=== PATIENT | male | born 1995 | race Caucasian/White ===

== ENCOUNTER 2020-11-26 18:20 | Emergency (ER) | payer BC ==
[2020-11-26] MEDS ORDERED: Bacitracin Oint 1 GM U/D Packet TOP ONE (19:01)
[2020-11-26] MEDS ORDERED: Lidocaine 1% 30 ML SDV INJECT ONE (19:01)
[2020-11-26] MEDS ORDERED: Cephalexin 500 MG Cap PO ONE (19:05)
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
== END 2020-11-26 19:56 | disposition home or self-care (01) ==
LOC: DL.ED 18:20
DX: S46.221A Laceration of muscle, fascia and tendon of other parts of biceps, right arm, initial encounter (principal); Z88.0 Allergy status to penicillin; W18.09XA Striking against other object with subsequent fall, initial encounter; W26.8XXA Contact with other sharp object(s), not elsewhere classified, initial encounter; Y93.I9 Activity, other involving external motion
CPT/HCPCS: 12004; 99282; A9270

== ENCOUNTER 2022-11-26 19:26 | Emergency (ER) | payer BC | END 2022-11-26 20:01 | disposition home or self-care (01) | LOC: DL.ED 19:26 | DX: S01.01XA Laceration without foreign body of scalp, initial encounter (principal); Z88.0 Allergy status to penicillin; Z72.0 Tobacco use; W50.0XXA Accidental hit or strike by another person, initial encounter | CPT/HCPCS: 12002; 99282 ==